=== PATIENT | male | born 1990 | race Caucasian/White ===

== ENCOUNTER 2017-02-19 23:19 | Emergency (ER) | payer OTHER ==
--- NOTE | 2017-02-20 00:29 | CT Preliminary Report ---
Exam: CT CERVICAL SPINE W/O IMPRESSION: No fracture is identified in the cervical spine. [facility] SITE ID: [id number]
--- NOTE | 2017-02-20 00:32 | CT Report ---
EXAM: CT CERVICAL SPINE WITHOUT CONTRAST DATE: 02/20/2017 12:11 AM. HISTORY: Trauma, midline tenderness, distal cervical spine. COMPARISONS: None. TECHNIQUE: Thin-section axial images were acquired of the cervical spine without contrast. Post-proce ssing: Coronal and sagittal reformats. Other: None. In accordance with CT protocol optimization, one or more of the following dose reduction techniques w ere utilized for this exam: automated exposure control, adjustment of mA and/or KV based on patient s ize, or use of iterative reconstructive technique. FINDINGS: Alignment: No scoliosis or spondylolisthesis. Bones: No fracture or bone lesion. Interspace Levels/Facets: C1-C2: Unremarkable. C2-C3: Unremarkable. C3-C4: Unremarkable. C4-C5: Unremarkable. C5-C6: Unremarkable. C6-C7: Unremarkable. C7-T1: Unremarkable. Musculature: Normal. No fatty atrophy. Other: The paravertebral and prevertebral soft tissues are unremarkable. The lung apices are clear. IMPRESSION: No fracture is identified in the cervical spine. [facility] Referring Provider Line: [phone] SITE ID: [id number]
--- NOTE | 2017-02-20 00:43 | ED Physician Documentation ---
PD HPI NECK PAIN - Stated complaint Stated Complaint: NECK PAIN,TINGLING,NUMBNESS - Chief complaint Chief Complaint: General - History obtained from History obtained from: Patient, Family - History of Present Illness Timing - onset: How many weeks ago (6) Timing - details: Abrupt onset, Still present, Intermittant Location: Lower, Right Quality: Pain, Spasm, Sharp Associated symptoms: No: Fever, Weakness Worsened by: Movement, Lifting, Twisting Contributing factors: Trauma Similar symptoms before: Work up / diagnostics Recently seen: Clinic - Additional information Additional information: Patient is a 26 year old male with no significant past medical history who is presenting to the emergency department for neck pain. Patient states that about 3-4 months ago he originally tweaked his neck. He states that since that time he has injured at least twice. 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 Patient states that he recently has had trouble swallowing and feels like his shasha's apple is larger than before. [place]. Review of Systems Constitutional: denies: Fever, Chills Eyes: denies: Decreased vision, Photophobia Ears: denies: Ear pain, Drainage/discharge Nose: denies: Rhinorrhea / runny nose, Congestion, Epistaxis Throat: reports: Sore throat. denies: Dental pain / toothache Cardiac: denies: Chest pain / pressure Respiratory: denies: Cough, Wheezing GI: denies: Nausea, Vomiting : denies: Dysuria, Frequency Skin: denies: Rash, Lesions Musculoskeletal: reports: Neck pain. denies: Back pain, Extremity pain, Joint pain Neurologic: reports: Numbness. denies: Difficulty speaking, Headache, Head injury Immunocompromised: denies: Immunocompromised PD PAST MEDICAL HISTORY - Past Medical History Past Medical History: No Cardiovascular: None Respiratory: None Neuro: None Endocrine/Autoimmune: None GI: None : None HEENT: None Psych: None Musculoskeletal: None Derm: None - Past Surgical History Past Surgical History: No - Allergies Allergies/Adverse Reactions: Allergies Allergy/AdvReac Type Severity Reaction Status Date / Time No Known Drug Allergies Allergy Verified 02/19/17 23:35 - Social History Does the pt smoke?: No Smoking Status: Never smoker Does the pt drink ETOH?: Yes Does the pt have substance abuse?: No - Immunizations Immunizations are current?: Yes - POLST Patient has POLST: No PD ED PE NORMAL - Vitals Vital signs reviewed: Yes - General General: Alert and oriented X 3, No acute distress, Well developed/nourished - HEENT HEENT: Atraumatic, PERRL, Ears normal, Moist mucous membranes, Pharynx benign, Dentition benign - Neck Neck: No adenopathy, Thyroid normal - Cardiac Cardiac: RRR, No murmur - Respiratory Respiratory: No respiratory distress, Clear bilaterally - Abdomen Abdomen: Soft, Non tender, Non distended - Derm Derm: Normal color, Warm and dry, No rash - Extremities Extremities: No deformity, No edema - Neuro Neuro: Alert and oriented X 3, 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, No motor deficit, No sensory deficit, Normal speech Eye Opening: Spontaneous Motor: Obeys Commands Verbal: Oriented GCS Score: 15 - Psych Psych: Normal mood PD ED PE EXPANDED - Neck Neck: Soft tissue TTP (right paraspinal muscles), Bony TTP (c5-c7, no step off, no gross deformity) Results - Vitals Vitals: Vital Signs - 24 hr 02/19/17 02/19/17 02/19/17 23:32 23:41 23:49 Temperature 36.7 C Heart Rate 123 H 109 H 102 H Respiratory 17 19 16 Rate Blood Pressure 142/88 H 135/86 H O2 Saturation 100 99 99 02/20/17 00:52 Temperature Heart Rate 90 Respiratory 17 Rate Blood Pressure 129/77 O2 Saturation 99 Oxygen O2 Source Room air - Rads (name of study) ct cervical spine Radiology: Final report received (no acute fracture or dislocation) PD MEDICAL DECISION MAKING - ED course Complexity details: reviewed old records, reviewed results, re-evaluated patient , considered differential, d/w patient, d/w family ED course: Patient was seen and examined at bedside. Patient was well appearing and in no distress. Patient did have midline tenderness and was sent for imaging. when patient returned the results were reviewed. there were no acute abnormalities on imaging. patient required no further work up and was stable for discharge with outpatient follow up. Departure - Departure Disposition: 01 Home, Self Care Clinical Impression: Neck muscle strain Condition: Good Instructions: ED Sprain Strain Neck Follow-Up: ARMANI CONTRERAS [Primary Care Provider] - Within 1 week Comments: Your diagnostics today were within normal limits. there were no fractures, dislocations or bony abnormalities. If your symptoms persist you will need to follow up with your pmd and possibly an outpatient mri. You can continue with motrin and tylenol for pain control and you can alternate between ice and heat as needed for pain. You may return to the emergency department at any time for new, worsening or uncontrollable symptoms. Forms: Activity restrictions
[2017-02-20 00:54] VITALS: BP 129/77
== END 2017-02-20 00:54 | disposition home or self-care (01) ==
LOC: ED 23:19
DX: S16.1XXA Strain of muscle, fascia and tendon at neck level, initial encounter (principal); W19.XXXA Unspecified fall, initial encounter
CPT/HCPCS: 72125; 99283